=== PATIENT | male | born 1950 | race Caucasian/White ===

== ENCOUNTER → 2018-08-06 | Outpatient (CLI) | payer MEDICARE ==
--- NOTE | 2018-08-06 12:49 | US ---
EXAMINATION TYPE: US kidneys/renal and bladder DATE OF EXAM: 08/06/2018 COMPARISON: NONE CLINICAL HISTORY: N18.9 Chronic kidney disease. EXAM MEASUREMENTS: Right Kidney: 9.5 x 5.8 x 5.7 cm Left Kidney: 10.6 x 6.0 x 5.0 cm Right Kidney: No hydronephrosis. Cystic area visualized mid pole measuring 1.2 x 1.0 x 1.3 cm. Cortic omedullary thinning Left Kidney: No hydronephrosis or masses seen. Corticomedullary thinning Bladder: wnl Bilateral Jets seen: Yes Incidental finding: Probable fatty liver visualized Simple appearing 1.0 cm cyst right kidney is present. No hydronephrosis is seen bilaterally. Bilatera l distal ureter jets are seen. IMPRESSION: No hydronephrosis evident bilaterally. Cortical medullary thinning consistent with product of chronic medical renal disease is noted bilaterally.
== END | disposition home or self-care (01) ==
LOC: RADUSWWP 10:18
PROVIDERS: ATTEND Internal Medicine Geriatric Medicine
DX: N18.9 Chronic kidney disease, unspecified (principal)
CPT/HCPCS: 76770

== ENCOUNTER → 2019-01-16 | Outpatient (CLI) | payer MEDICARE ==
--- NOTE | 2019-01-16 12:58 | US ---
EXAMINATION TYPE: US kidneys/renal and bladder DATE OF EXAM: 01/16/2019 COMPARISON: NONE CLINICAL HISTORY: N18.3 Chronic kidney disease. Urine stream has diminished EXAM MEASUREMENTS: Right Kidney: 10.2 x 5.2 x 6.3 cm Left Kidney: 10.1 x 4.6 x 5.8 cm Right Kidney: No hydronephrosis or masses seen Left Kidney: No hydronephrosis or masses seen Bladder: wnl Bilateral Jets seen: yes IMPRESSION: 1. Normal renal ultrasound
== END | disposition home or self-care (01) ==
LOC: RADUSWWP 10:53
PROVIDERS: ATTEND Internal Medicine
DX: N18.3 Chronic kidney disease, stage 3 (moderate) (principal)
CPT/HCPCS: 76770

== ENCOUNTER → 2019-11-27 | Outpatient (CLI) | payer MEDICARE ==
--- NOTE | 2019-11-28 09:11 | ECHOS ---
STRESS ECHOCARDIOGRAM LUMASON: Vial INDICATIONS: Chest pain. MEDICATIONS: Atorvastatin, amlodipine, lisinopril. BASELINE HEART RATE: 79 BASELINE BLOOD PRESSURE: 156/72 MAXIMUM HEART RATE: 152 MAXIMUM BLOOD PRESSURE: 207/115 85% MPHR: 128 100% MPHR: 151 METS: 5.2 MAXIMUM STAGE REACHED: 2 TOTAL EXERCISE TIME: 3.32 CLINICAL INFORMATION: STRESS DATA: Heart rate 79, pressure is 156/72 mmHg. Baseline EKG showed sinus mechanism. The patient exercised on the treadmill according to [employer] protocol for a total of 3 minutes and 32 seconds and achieved 5.2 METS. Max heart rate was 115, which is about 100% of maximum predicted heart rate. Maximum blood pressure was 207/115 mmHg. Clinically the patient did not have any symptoms of chest pain or chest discomfort during the testing or on recovery. The EKG showed about 0.[address]-segment changes on recovery. The patient did have multiple episodes of ventricular arrhythmia in terms of PVCs, couplets and triplets. ECHOCARDIOGRAM IMAGES: Echocardiogram images from parasternal long axis view, parasternal short axis view, apical 4-chamber and apical 2-chamber views were obtained as the baseline images, at the peak of the heart rate as well as on recovery. The echocardiogram images showed some wall motion abnormalities in the inferior wall of the left ventricle concerning for severe underlying coronary artery disease. CONCLUSION: 1. Poor exercise tolerance. 2. Abnormal EKG in response to exercise with evidence of ST changes on recovery concerning for ischemia as well as ventricular arrhythmia in terms of premature ventricular contractions as well as couplets and triplets. 3. Abnormal echocardiogram in response to exercise with evidence of wall motion abnormalities in the inferior wall, also concerning for severe underlying coronary artery disease. 4. Overall this is an abnormal stress echocardiogram for the patient. MMODL / IJN: [id number] /
== END | disposition home or self-care (01) ==
LOC: RADNMMAIN 09:32
PROVIDERS: ATTEND Internal Medicine Geriatric Medicine
DX: R94.31 Abnormal electrocardiogram [ECG] [EKG] (principal); R93.1 Abnormal findings on diagnostic imaging of heart and coronary circulation; R94.39 Abnormal result of other cardiovascular function study
CPT/HCPCS: 93351

== ENCOUNTER → 2019-12-17 | Outpatient (CLI) | payer MEDICARE ==
[2019-12-17 14:35] LABS: Potassium 3.8 mmol/L (3.5-5.1)
[2019-12-17 15:10] LABS: HCT 41.8 % (39.0-53.0); HGB 13.7 gm/dL (13.0-17.5); MCH 32.1 pg (25.0-35.0); MCHC 32.9 g/dL (31.0-37.0); MCV 97.8 fL (80.0-100.0); Mean Platelet Volume 7.3; Platelet Count 256 k/uL (150-450); RBC 4.27 m/uL (4.30-5.90); RDW 13.8 % (11.5-15.5); WBC 6.4 k/uL (3.8-10.6)
== END | disposition home or self-care (01) ==
LOC: LABPAT 13:20
PROVIDERS: ATTEND Internal Medicine Interventional Cardiology
DX: Z01.818 Encounter for other preprocedural examination (principal); R94.39 Abnormal result of other cardiovascular function study
CPT/HCPCS: 36415; 80051; 82565; 84520; 85027